=== PATIENT | male | born 1980 | race Caucasian/White ===

== ENCOUNTER 2017-07-18 14:43 | Emergency (ER) | payer BC ==
[~2017-07-18] VITALS: Ht 165.1 cm; Wt 67.9 kg
[2017-07-18 14:47] VITALS: BP 110/72
[2017-07-18] MEDS ORDERED: LIDOCAINE 2%, 20ML SQ ONE (15:30)
== END 2017-07-18 16:04 | disposition home or self-care (01) ==
LOC: ED 15:30
DX: L02.212 Cutaneous abscess of back [any part, except buttock and flank] (principal)
CPT/HCPCS: 10060; 99283

== ENCOUNTER 2018-08-21 17:13 | Emergency (ER) | payer BC, OTHER ==
[~2018-08-21] VITALS: Ht 165.1 cm; Wt 73.7 kg
--- NOTE | 2018-08-21 17:40 | NUR ---
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
--- NOTE | 2018-08-21 17:57 | NUR ---
EDTA and EMT student at bedside for IV start.
--- NOTE | 2018-08-21 18:10 | NUR ---
Dr. Joy at bedside to evaluate pt.
--- NOTE | 2018-08-21 18:15 | NUR ---
Pt to imaging, with tech, via [facility].
[2018-08-21] MEDS ORDERED: DIPHENHYDRAMINE 50 MG/ML, 1ML ONE (18:20)
[2018-08-21] MEDS ORDERED: PROCHLORPERAZINE 5 MG/ML, 2ML ONE (18:20)
[2018-08-21] MEDS ORDERED: SUMATRIPTAN 6MG/0.5ML SQ ONE ×2 (18:20→18:30)
[2018-08-21] MEDS ORDERED: PROCHLORPERAZINE 5 MG/ML, 2ML IVPush ONE (18:30)
[2018-08-21] MEDS ORDERED: SODIUM CHLORIDE FLUSH 10ML SYR IVF ONE (18:30)
[2018-08-21] MEDS ORDERED: DIPHENHYDRAMINE 50 MG/ML, 1ML IVPush ONE (18:30)
[2018-08-21] MEDS ORDERED: DIHYDROERGOTAMINE 1 MG/ML, 1ML IM ONE (18:30)
--- NOTE | 2018-08-21 19:05 | NUR ---
Dr. Joy at bedside to discuss ED findings and POC.
--- NOTE | 2018-08-21 19:10 | NUR ---
Pt medicated per MAR.
[2018-08-21 19:13] VITALS: BP 125/77
--- NOTE | 2018-08-21 19:45 | NUR ---
Patient/Caregiver given discharge instructions and they have confirmed that they understand the instructions. Patient ambulatory with steady gait.
== END 2018-08-21 19:46 | disposition home or self-care (01) ==
LOC: ED 19:41
DX: G43.011 Migraine without aura, intractable, with status migrainosus (principal); F17.200 Nicotine dependence, unspecified, uncomplicated
CPT/HCPCS: 70450; 96372; 96374; 96375; 99284; J0780; J1200; J3030